=== PATIENT | male | born 1960 | race Caucasian/White ===

== ENCOUNTER 2019-02-16 18:11 | Inpatient (IN) | payer MEDICAID ==
[~2019-02-16] VITALS: Ht 170.2 cm; Wt 80.3 kg
--- NOTE | 2019-02-16 18:49 | NUR ---
PT PRESENTS TO ED WITH C/O TOE PAIN ON LEFT FOOT. PT STS HE BEGAN FEELING PAIN IN HIS FOOT/TOES X6 DAYS AGO. PER PT SON PT "TRIED TO CLEAN FOOT WITH SALINE WATER IN CASE HE HAD AN INFECTION. PT HAS HX OF DIABETES AND STS HE IS COMPLIANT WITH MEDICATION. PINKY TOE OF PT LEFT FOOT IS BLACK; ERYTHEMA AND SWELLING IS NOTED ON PT ENTIRE LEFT FOOT. PT STS HE HAS FEELING IN BIG TOE, SECOND TOE, AND THIRD TOE OF LEFT FOOT. PT DENIES PAIN PRIOR TO 6 DAYS AGO, FEVER, OR LEG PAIN. PT AAOX4, RESP E/U, NO ACUTE DISTRESS NOTED AT THIS TIME. SON AT BEDSIDE.
--- NOTE | 2019-02-16 19:08 | NUR ---
RECIEVED REPORT FROM RUFINO LITTLE, I WILL RESUME CARE OF THIS PATIENT
[2019-02-16 19:23] LABS: BASOPHIL % 0.7 % (0-2); RED CELL DISTRIBUTION WIDTH 13.9 % (11.5-14.5)
[2019-02-16 19:24] LABS: PLATELET COUNT 440 x10^3mcL (130-400)
--- NOTE | 2019-02-16 19:33 | NUR ---
MEDICATED PER MD ORDERS, SEE EMAR. FLUIDS INFUSING NO PROB. PT IN POSTION OF COMFORT, AOX4, NO SIGNS OF DISTRESS, RESP E/U. SISTER IS AT THE BEDSIDE. WILL CONT TO MONITOR.
[2019-02-16 19:36] LABS: CALCIUM 9.2 mg/dL (8.5-10.1); CARBON DIOXIDE 25.1 mmol/L (21-32); CHLORIDE SERUM 97 mmol/L (98-107); CREATININE SERUM 1.2 mg/dL (0.7-1.3); GFR1 > 60 mL/min; GLUCOSE SERUM 322 mg/dL (74-106); POTASSIUM SERUM 4.3 mmol/L (3.5-5.1); SODIUM SERUM 133 mmol/L (136-145)
[2019-02-16 19:48] LABS: ALKALINE PHOSPHATASE 211 U/L (46-116); ALT/SGPT 28 U/L (16-63); AST/SGOT 18 U/L (15-37)
[2019-02-16 19:49] LABS: ALBUMIN 2.8 g/dL (3.4-5.0); TOTAL PROTEIN, SERUM 8.7 g/dL (6.4-8.2)
--- NOTE | 2019-02-16 19:50 | NUR ---
COLLECTED WOUND CULTURE AND COMPLETED PICTURES OF WOUND.
[2019-02-16] MEDS ORDERED: METFORMIN HCL850 MG PO (22:30)
--- NOTE | 2019-02-16 22:30 | NUR ---
PT IN POSITION OF COMFORT LAYING IN BED WATCHING TV. PT IS AOOX4, NO SIGNS OF DISTRESS NOTED, RESP E/U. MED REC AND PERSONAL BELONGINGS LIST DONE.
--- NOTE | 2019-02-16 22:35 | NUR ---
GAVE REPORT TO TYE LITTLE WHO WILL RESUME FURTHER CARE OF THIS PATIENT.
[2019-02-16 23:09] VITALS: BP 123/72
--- NOTE | 2019-02-16 23:24 | NUR ---
RECEIVED PT FROM ER. PT ADMIT FOR CELLULITIS, DM FOOT ULCER. PT IS A/O X4, VERBAL RESPONSIVE, ABLE TO TELL WHAT HE NEEDS. LUNG SOUND CLEAR BIALTERAL, NO COUGH, NO SOB, PT DENY ANY CHEST PAIN OR DISCOMFORT, BOWEL SOUND PRESENT ALL 4 QUADRANTS, NO DISTENTION, NO TENDER. PEDAL PULSE PRESENT BOTH FEET, WEAKER AT LLE, LLE ERYTHEMA AND +1 EDEMA, LEFT FIFTH TOE IS BLACK DISCOLORATION. TIP OF RIGHT BIG TOE OPEN SCAB. IV AT LEFT AC, NO LEAKING, NO INFILTRATION. ALL ADLS ASSIST, ALL NEED MET, CALL LIGHT IN REACH, WILL CONTINUE TO MONITOR.
--- NOTE | 2019-02-16 23:29 | NUR ---
STARTED ON IVF NS AT 100CC/HR VIA PERIPHERAL LINE AT THE [facility] TOLERATING WELL. DENEIS ANY PAIN/DISCOMFORT AT THIS TIME. PLACED CALL LIGHT WITHIN REACH. INSTRUCTED TO CALL FOR ANY ASSISTANCE NEEDED AND VERBALIZED UNDERSTANDING.
[2019-02-16 23:45] LABS: CHOLESTEROL/HDL RATIO 7.2; MAGNESIUM 2.1 mg/dL (1.8-2.4); PHOSPHOROUS 3.5 mg/dL (2.5-4.9)
[2019-02-17 00:11] LABS: FREE T4 1.34 ng/dL (0.76-1.46); FREE THYROXINE INDEX 3.2 ug/dL (1.4-4.5); T4(THYROXINE) 8.4 ug/dL (4.7-13.3)
--- NOTE | 2019-02-17 06:18 | NUR ---
UNASYN 1.5GM IVPB GIVEN ORDERED, NO ADVERSE REACTION NOTED. URINE SPECIMEN COLLECTED FOR UA/UDS ORDERED AND SENT TO LAB. KEPT CLEAN AND DRY. ALL NEEDS ATTENDED.
[2019-02-17 06:22] LABS: BASOPHIL % 0.1 % (0-2); PLATELET COUNT 374 x10^3mcL (130-400); RED CELL DISTRIBUTION WIDTH 13.9 % (11.5-14.5)
[2019-02-17 06:37] VITALS: BP 123/76
[2019-02-17 06:38] LABS: CALCIUM 8.6 mg/dL (8.5-10.1); CARBON DIOXIDE 23.4 mmol/L (21-32); CHLORIDE SERUM 103 mmol/L (98-107); GFR1 > 60 mL/min; GLUCOSE SERUM 150 mg/dL (74-106); MAGNESIUM 1.9 mg/dL (1.8-2.4); PHOSPHOROUS 4.1 mg/dL (2.5-4.9); POTASSIUM SERUM 4.3 mmol/L (3.5-5.1); SODIUM SERUM 139 mmol/L (136-145)
--- NOTE | 2019-02-17 07:30 | NUR ---
OX4; NO SOB AT RA. DENIES PAIN AT THIS TIME THAT REQUIRE PAIN MED. LT FT 5TH TOE IS BLACK, MOIST, ERYTHEMATOUS ON THE SURROUNDING SKIN, AND EDEMATOUS. PULSES ARE MODERATE AND PALPABLE BIPEDAL. IVF NSS AT 100 ML/HR INFUSING; LAC SITE PATENT AND WITHOUT INFILTRATION. NPO PENDING DR. PERRY CONSULT. SAFETY PRECAUTION AND FALL PRECAUTION REINFORCED; WILL CONTINUE TO MONITOR STATUS.
[2019-02-17 07:57] LABS: T3 TOTAL 0.77 ng/mL
[2019-02-17 09:41] VITALS: BP 134/78
[2019-02-17 09:49] LABS: UA SPECIFIC GRAVITY 1.015 (1.005-1.035); microscopic required? YES; urine erythrocyte NEGATIVE (NEGATIVE)
[2019-02-17 10:02] LABS: AMPHETAMINE QUAL UR NONE DETECTED (See below)
--- NOTE | 2019-02-17 13:54 | NUR ---
PT SIGNED THE CONSENT FOR EXCISIONAL DEBRIDEMENT WITH I&D LT FT ORDERED BY DR. ALEJANDRE.
--- NOTE | 2019-02-17 15:00 | NUR ---
DR. ALEJANDRE AND HIS COMPUTER SCIENCE INSTRUCTOR IN THE ROOM PERFORMING THE PROCEDURE;
--- NOTE | 2019-02-17 15:40 | NUR ---
PT IS POST EXCISIONAL DEBRIDEMENT WITH I&D IN THE ROOM; PHOTO TAKEN POST DEBRIDEMENT; SPECIMEN SENT FOR LT FT DEEP WOUND CX ABSCESS ORDERED BY DR. ALEJANDRE; LT FT DSG CDI. PT C/O HUNGER SO WAS GIVEN SANDWICH AND MILK.
[2019-02-17 17:23] VITALS: BP 139/79
--- NOTE | 2019-02-17 18:36 | NUR ---
NO C/O OF PAIN THAT REQUIRE PAIN MEDS; LT FT DSG REMAIN CDI; NOT IN ANY DISTRESS.
--- NOTE | 2019-02-17 19:20 | NUR ---
REPORT RECIEVED FROM DAY SHIFT RN. PATIENT WAS SEEN AND IS RESTING COMFORTBALY IN BED. BREATHING EVEN ON ROOM AIR. NO SOB OR RESP DISTRESS NOTED. DENIES CHEST PAIN. MED SURG PATIENT. NO C/O OF PAIN. IV TO THE LAC INFUSING WELL. PATENT AND INTACT. NO REDNESS OR SWELLING NOTED. DRESSING NOTED TO THE LEFT FOOT S/P I+D. DRESSING CDI. COMFORT AND SAFETY MEASURES MAINTAINED. BED IS LOCKED AND IN THE LOWEST POSITION. SIDE RAILS UP X2. CALL LIGHT IS WITHIN REACH. PATIENT IS ABLE TO MAKE NEEDS KNOWN. WILL CONTINUE TO MONITOR.
--- NOTE | 2019-02-17 21:35 | NUR ---
BS 237. PATIENT IS SCHEDULED FOR METFORMIN (HOME MED). PER DR. GOODWIN, NO INSULIN WILL BE GIVEN AT THIS TIME. WILL RECHECK BS IN 2 HOURS TO ASSESS BS AFTER METFORMIN WAS ADMINISTERED.
--- NOTE | 2019-02-18 02:30 | NUR ---
PATIENT IS RESTING WITH EYES CLOSED AT THIS TIME. BREATHING EVEN ON ROOM AIR. IV INFUSING WELL. NO DISTRESS NOTED. CALL LIGHT IS WITHIN REACH. WILL CONTINUE TO MONITOR.
[2019-02-18 05:30] VITALS: BP 112/70
--- NOTE | 2019-02-18 06:23 | NUR ---
PATIENT SLEPT IN LONG INTERVAL THROUGHOUT THE NIGHT. BREATHING EVEN ON ROOM. NO DISTRESS NOTED. NO C/O PAIN THROUGHOUT THE NIGHT. EDUCATED PATIENT ON ALL MEDICATIONS. NO ACUTE/SIGNIFICANT CHANGES NOTED. DENIES CHEST PAIN. LEFT FOOT DRESSING INPLACE, CDI. IV TO LAC INFUSING WELL. PATENT AND INTACT. COMFORT AND SAFETY MEASURES MAINTAINED. BED IS LOCKED AND IN THE LOWEST POSITION. CALL LIGHT IS WITHIN REACH. ALL NEEDS AND CONCERNS ADDRESSED. WILL ENDORSE CARE TO DAY SHIFT RN.
[2019-02-18 06:26] LABS: CALCIUM 8.6 mg/dL (8.5-10.1); CARBON DIOXIDE 23.6 mmol/L (21-32); CHLORIDE SERUM 104 mmol/L (98-107); CREATININE SERUM 0.9 mg/dL (0.7-1.3); GFR1 > 60 mL/min; GLUCOSE SERUM 166 mg/dL (74-106); POTASSIUM SERUM 4.6 mmol/L (3.5-5.1); SODIUM SERUM 137 mmol/L (136-145)
[2019-02-18 06:32] LABS: BASOPHIL % 0.2 % (0-2); PLATELET COUNT 398 x10^3mcL (130-400); RED CELL DISTRIBUTION WIDTH 13.8 % (11.5-14.5)
--- NOTE | 2019-02-18 07:45 | NUR ---
PATIENT RESTING IN BED, NO ACUTE DISTRESS NOTED. NO SOB NOTED, PATIENT ON ROOM AIR. PAITENT DENIES PAIN. DRESSING NOTED TO LFOOT, CDI, NO DRAINAGE NOTED. PAITENT IS AMBULATORY. NS IV INFUSING TO LAC AT 100ML/HR, IV SITE CDI, NO REDNESS, SWELLING OR PAIN NOTED. CALL LIGHT WITHIN REACH, BED IN LOW POSITION. WILL CONTINUE TO MONITOR PATIENT.
[2019-02-18 09:52] VITALS: BP 118/72
--- NOTE | 2019-02-18 12:40 | NUR ---
DR ALEJANDRE, ADMINISTRATION PHYSICIAN AT BEDSIDE, PROVIDING PATIENT WITH A DRESSING CHANGE TO LEFT LOWER EXTREMITY.
--- NOTE | 2019-02-18 17:00 | NUR ---
PATIENT EATING AT THIS TIME, FAMILY AT BEDSIDE. PATIENT DENIES PAIN. NO ACUTE DISTRESS NOTED. CALL LIGHT WITHIN REACH, BED IN LOW POSITION. WILL CONTINUE TO MONITOR FOR CHANGES.
--- NOTE | 2019-02-18 17:50 | NUR ---
DR BASS AWARE PATIENT WOUND CULTURE IS E. COLI CARBAPENEM RESISTENT & MULTIDRUG RSISTANT. CHARGE NURSE MARIUM MADE AWARE. PATIENT PLACED ON CONTACT ISOLATION. WILL CONTINUE TO MONITOR.
[2019-02-18 17:58] VITALS: BP 126/69
--- NOTE | 2019-02-18 18:03 | NUR ---
DR ALEJANDRE, SENIOR MANAGER ASSET PROTECTION AT BEDSIDE, PROVIDING PATIENT WITH A DRESSING CHANGE TO LEFT LOWER EXTREMITY.
--- NOTE | 2019-02-18 18:18 | NUR ---
PATIENT RESTING IN BED, WATCHIN TV. PATIENT DENIES PAIN. NO ACUTE DISTRESS NOTED. NO SOB NOTED, PATIENT ON ROOM AIR. NO ACUTE CHANGES THROUGH OUT SHIFT, PATIENT IS STABLE. NS IV INFUSING TO LAC AT 100ML/HR, IV SITE CDI, NO REDNESS, SWELLING OR PAIN NOTED. CALL LIGHT WITHIN REACH, BED IN LOW POSITION FOR SAFETY PRECAUTION. WILL CONTINUE TO MONITOR AND ENDORSE REPORT TO NIGHT NURSE.
--- NOTE | 2019-02-18 19:30 | NUR ---
RECIEVED PATIENT AT START OF SHIFT A/O X4. ON CONTACT PRECAUTIONS FOR MDR ECOLI OF LEFT FOOT WOUND. DENIES PAIN. NO SOB ON RA. APPEARS COMFORTABLE. LEFT FOOT IS ELEVATED ON PILLOW, APPEARS SWOLLEN. MODERATE YELLOW EXUDATE NOTED ON WOUND DRESSING. CAP REFILL BRISK. IV INFUSING TO LAC WITHOUT ERYTHEMA OR INFILTRATION. BED LOCKED AND IN LOWEST POSITION. CALL LIGHT AND BEDSIDE TABLE WITHIN REACH. WILL CONTINUE TO MONITOR.
[2019-02-18 20:58] VITALS: BP 137/82
--- NOTE | 2019-02-19 00:30 | NUR ---
WOUND CULTURE SENSITIVITY REPORT SHOWED ORGANISMS RESISTANT TO UNASYN. DR. GOODWIN NOTIFIED. UNASYN D/C. AMIKACIN SCHEDULED FOR 010. WILL ADMINISTER PER EMAR.
[2019-02-19 05:32] VITALS: BP 139/80
--- NOTE | 2019-02-19 06:38 | NUR ---
NO FURTHER SIGNIFICANT EVENTS THIS SHIFT. SUPPLIES FOR WOUND DRESSING CHANGE LEFT AT BEDSIDE FOR REMOTE COMPUTER TERMINAL OPERATOR. WILL ENDORSE CARE TO MORNING NURSE.
--- NOTE | 2019-02-19 07:18 | NUR ---
REPORT TAKEN FROM AUTOMATIC ENGRAVER NURSE, PT AWAKE TALKING ON THE PHONE, IN NAD, DENIED PAIN AT THIS TIME, DRESSING CHANGE SUPPLIES AT THE BED SIDE. WILL CONTINUE TO MONITOR.
[2019-02-19 07:27] LABS: BASOPHIL % 0.4 % (0-2); PLATELET COUNT 393 x10^3mcL (130-400); RED CELL DISTRIBUTION WIDTH 13.8 % (11.5-14.5)
[2019-02-19 07:36] LABS: CALCIUM 8.6 mg/dL (8.5-10.1); CARBON DIOXIDE 22.8 mmol/L (21-32); CHLORIDE SERUM 104 mmol/L (98-107); CREATININE SERUM 0.8 mg/dL (0.7-1.3); GFR1 > 60 mL/min; GLUCOSE SERUM 139 mg/dL (74-106); POTASSIUM SERUM 4.5 mmol/L (3.5-5.1); SODIUM SERUM 137 mmol/L (136-145)
[2019-02-19 07:45] VITALS: BP 146/79
--- NOTE | 2019-02-19 15:12 | NUR ---
Discount pharmacy card and list to low cost medical clinics given to patient by Wes.
--- NOTE | 2019-02-19 15:34 | NUR ---
PT TOLERATED TREATMENT WELL TO THIS POINT, RESTING AT THIS TIME. DENIED PAIN IN LEFT FOOT. WILL CONTINUE TO MONITOR.
[2019-02-19 17:40] VITALS: BP 146/82
--- NOTE | 2019-02-19 18:49 | NUR ---
PT TOLERATED CARE WELL, NO NEW EVENTS DURING SHIFT, WILL ENDORSE CARE TO ANSWERER NURSE, ROUNDS COMPLETED
--- NOTE | 2019-02-19 19:10 | NUR ---
RECEIVED PT FROM DAY SHIFT RNCeline LADD. JORDANIAN SPEAKING. MEDSURG. DENIES CP. LUNG SOUNDS CTAB, NO SOB, BREATHING E/U ON RA. ABD SOFT/FLAT, BS ACTIVE X4 QUADS, DENIES N/V, DENIES ABD PAIN. DENIES PAIN. LLE WRAPPED IN GAUZE DRESSING, CDI, ELEVATED ON ONE PILLOW. ERYTHEMA AND SWELLING NOTED TO LLE. PT ABLE TO WIGGLE TOES. CAP REFILL <3. PULSES PALPABLE. IV SITE CDI, IVF INFUSING WELL. CALL LIGHT WITHIN REACH. REMINDED PT NOT TO BEAR WEIGHT ON LLE, PT VERBALIZED UNDERSTANDING. WILL CONTINUE TO MONITOR.
[2019-02-19 20:33] VITALS: BP 122/74
--- NOTE | 2019-02-20 00:20 | NUR ---
UPDATED DR. SELF ON PT CONDITION. LLE DRESSING REMOVED PER DR. SELF REQUEST TO ALLOW ASSESSMENT. GAUZE WITH BETADINE AND NEW DRESSING APPLIED, CDI. ORDERS RECEIVED, WILL INPUT AND CARRY OUT.
--- NOTE | 2019-02-20 01:24 | NUR ---
PT RESTING IN BED WITH EYES CLOSED. BREATHING E/U. EMPTIED 400CC OF CLEAR YELLOW URINE OUT OF URINAL. NO SIGNS OF PAIN NOTED. LLE DRESSING CDI. NO S/S ACUTE DISTRESS. CALL LIGHT WITHIN REACH. WILL CONTINUE TO MONITOR.
[2019-02-20 05:21] VITALS: BP 134/83
--- NOTE | 2019-02-20 05:59 | NUR ---
PT HAD RESTFUL NIGHT. DENIES PAIN. NO S/S ACUTE DISTRESS. BREATHING E/U. ALL NEEDS MET AND ATTENDED TO. NO SIGNIFICANT CHANGES. LLE DRESSING WITH SEROSANGUINEOUS DRAINAGE NOTED, REINFORCED NEEDED. REMINDED PT OF NON-WEIGHT BEARING ON LLE, PT VERBALIZED UNDERSTANDING. CALL LIGHT WITHIN REACH. IV SITE CDI, IVF INFUSING WELL. WILL ENDORSE CARE TO ONCOMING SHIFT.
[2019-02-20 07:45] LABS: CALCIUM 8.4 mg/dL (8.5-10.1); CARBON DIOXIDE 24.2 mmol/L (21-32); CHLORIDE SERUM 104 mmol/L (98-107); CREATININE SERUM 0.9 mg/dL (0.7-1.3); GFR1 > 60 mL/min; GLUCOSE SERUM 142 mg/dL (74-106); SODIUM SERUM 137 mmol/L (136-145)
--- NOTE | 2019-02-20 07:59 | NUR ---
RECEIVED PT SITTING UP IN BED. NO ACUTE DISTRESS. AAOX4. RESP EVEN AND UNLABORED ON RA. DRESSING TO LEFT FOOT C/D/I. L FOOT ELEVATED WITH PILLOW. PT ABLE TO WIGGLE TOES, DENIES NUMBNESS OR TINGLING. IVF INFUSING, NO REDNESS OR SWELLING. CONTACT ISOLATION. BED IN LOW POSITION, CALL LIGHT WITHIN REACH. WILL CONTINUE TO MONITOR.
[2019-02-20 08:02] LABS: BASOPHIL % 0.3 % (0-2)
[2019-02-20 08:07] VITALS: BP 133/80
[2019-02-20 08:14] LABS: PLATELET COUNT 402 x10^3mcL (130-400)
--- NOTE | 2019-02-20 08:43 | NUR ---
WOUND CARE CONSULT NOT DONE, PT. IS UNDER DR. ALEJANDRE'S CARE WHILE IN HOUSE AND WILL CONTINUE TO FOLLOW HIS ORDER. PENDING VASCULAR SURGEON CONSULT.
[2019-02-20 11:50] VITALS: BP 126/71
--- NOTE | 2019-02-20 12:34 | NUR ---
PT RESTING IN BED. NO ACUTE DISTRESS. NO C/O PAIN TO LLE. LLE ELEVATED WITH PILLOW. DRESSING C/D/I. IVF INFUSING, NO REDNESS OR SWELLING TO IV SITE. CALL LIGHT WITHIN REACH. WILL CONTINUE TO MONITOR.
--- NOTE | 2019-02-20 17:56 | NUR ---
DRESSING CHANGE DONE ON LEFT FOOT ORDERED. WOUND CLEANED WITH 10% BETADINE AND NORMAL SALINE, PACKED WITH BETADINE SOAKED GAUZE, COVERED WITH BETADINE SOAKED GAUZE, WRAPPED WITH KERLIX AND AR BANDAGE. PT TOLERATED WELL. L FOOT ELEVATED WITH PILLOW. WILL CONTINUE TO MONITOR.
[2019-02-20 18:04] VITALS: BP 135/78
--- NOTE | 2019-02-20 18:15 | NUR ---
PT SITTING UP IN BED EATING DINNER. NO ACUTE DISTRESS. AAOX4. NO C/O PAIN. DRESSING TO L FOOT C/D/I. ELEVATED WITH PILLOW. HOB ELEVATED. IVF INFUSING, NO REDNESS OR SWELLING. BED IN LOW POSITION, CALL LIGHT WITHIN REACH. WILL ENDORSE TO ONCOMING SHIFT.
--- NOTE | 2019-02-20 19:11 | NUR ---
RECEIVED PT FROM PREVIOUS SHIFT NURSE. AAO. IRAQI SPEAKING. DENIES PAIN. LLE WRAPPED IN GAUZE DRESSING, CDI, ELEVATED ON ONE PILLOW. SMALL AMOUNT OF SEROSANGUINEOUS DRAINAGE NOTED ON CHUCKS UNDERNEATH LLE. DENIES CP. RR EVEN AND UNLABORED, NO SOB. IV SITE CDI, IVF INFUSING WELL. CALL LIGHT WITHIN REACH. WILL CONTINUE TO MONITOR.
[2019-02-20 22:21] VITALS: BP 141/84
--- NOTE | 2019-02-20 22:44 | NUR ---
UPDATED DR. SELF ON PT CONDITION. NO NEW ORDERS.
--- NOTE | 2019-02-21 00:15 | NUR ---
PT RESTING IN BED. RR EVEN AND UNLABORED. NO S/S ACUTE DISTRESS. DENIES PAIN. WILL CONTINUE TO MONITOR.
[2019-02-21 06:12] VITALS: BP 139/76
--- NOTE | 2019-02-21 07:17 | NUR ---
BEDSIDE REPORT GIVEN TO SIDNEY HERNANDEZ. ALL QUESTIONS AND CONCERNS ADDRESSED.
--- NOTE | 2019-02-21 08:04 | NUR ---
AAO TIMES 4. MED SURG PATIENT. LUNGS CTA. NO SOB. O2 SAT ON RA 98%. BS'S ACTIVE TIMES 4. PERIPHERAL PULSES PALPABLE, LEFT FOOT DRESSING IN PLACE, THICKLY WRAPPED. NO EDEMA RIGHT FOOT, RIGHT FOOT PEDAL PULSES PALPABLE, WEAK TO MODERATE STRENGTH. IV SITE LAC PATENT, CDI.
[2019-02-21 08:08] LABS: BASOPHIL % 0.3 % (0-2); PLATELET COUNT 402 x10^3mcL (130-400); RED CELL DISTRIBUTION WIDTH 13.6 % (11.5-14.5)
[2019-02-21 09:14] LABS: CALCIUM 8.6 mg/dL (8.5-10.1); CARBON DIOXIDE 25.5 mmol/L (21-32); CHLORIDE SERUM 104 mmol/L (98-107); CREATININE SERUM 0.9 mg/dL (0.7-1.3); GFR1 > 60 mL/min; GLUCOSE SERUM 145 mg/dL (74-106); POTASSIUM SERUM 4.3 mmol/L (3.5-5.1); SODIUM SERUM 140 mmol/L (136-145)
[2019-02-21 09:42] VITALS: BP 122/71
--- NOTE | 2019-02-21 13:00 | NUR ---
DRESSING TO LEFT FOOT WAS REMOVED BY THE DR. Lolly IRRIGATED THE WOUND WITH SOLUTION OF 90% SALINE AND 10% BETADINE. BETADINE SOAKED KERLIX WAS INSERTED IN THE WOUND, DRY DRESSINGS WERE PLACED ON TOP, A KERLIX WRAP WAS WRAPPED AROUND FOOT THEN A LOOSE AR BANDAGE WAS WRAPPED AROUND THE FOOT.
[2019-02-21 17:51] VITALS: BP 131/80
--- NOTE | 2019-02-21 18:12 | NUR ---
AAO TIMES 4. MED SURG. CONTACT ISOLATION. DRESSING TO LEFT FOOT CDI. NO C/O PAIN. NO SOB. IV SITE PATENT, CDI LAC. COOPERATIVE. WATCHING TV.
--- NOTE | 2019-02-21 19:30 | NUR ---
REC'D PT FROM DAY NURSE. PT RESTING IN BED. AAOX4, SPEECH CLEAR, FOLLOWS COMMANDS. MED SURG, NO TELE. DENIES CP, DIZZINESS, OR PALPITATIONS. DENIES RESP DISTRESS OR SOB. BREATHING EVEN/UNLABORED ON RA. ABD SOFT/FLAT. DENIES ABD PAIN, TENDERNESS, OR N/V. VOIDING FREELY. AMBULATORY- NWB TO LLE. DRESSING TO L FOOT IN PLACE, CDI WITH SPOTS OF BETADINE. BLE ELEVATED WITH PILLOWS. PT DENIES ANY PAIN, NUMBING, OR TINGLING. FULL ROM. IV TO LAC PATENT AND INFUSING, SITE WNL. PT IS NPO AFTER MN D/T SX IN AM. PT VERBALIZED UNDERSTANDING. CALL LIGHT WITHIN REACH, BED AT LOWEST POSITION. WILL CONTINUE TO MONITOR.
[2019-02-21 20:49] VITALS: BP 135/78
--- NOTE | 2019-02-22 01:04 | NUR ---
PT RESTING IN BED WITH EYES CLOSED. APPEARS TO BE SLEEPING. NO SIGNS OF DISTRESS NOTED. BREATHING EVEN/UNLABORED ON RA. LLE ELEVATED ON PILLOW. CALL LIGHT WITHIN REACH, BED AT LOWEST POSITION. WILL CONTINUE TO MONITOR.
[2019-02-22 05:31] VITALS: BP 143/81
[2019-02-22 06:15] LABS: BASOPHIL % 0.3 % (0-2); RED CELL DISTRIBUTION WIDTH 13.5 % (11.5-14.5)
--- NOTE | 2019-02-22 06:15 | NUR ---
PT AWAKE AND RESTING IN BED. REPORTS SLEEPING WELL. DENIES ANY PAIN. LLE ELEVATED, DRESSING CDI. CHG WIPES DONE. CHECKLIST COMPLETED. NPO SINCE MN. PARTIAL AMPUTATION OF 5TH L TOE TODAY. PT DENIES ANY ANXIETY. METFORMIN HELD D/T NPO STATUS. BS 147. CALL LIGHT WITHIN REACH, BED AT LOWEST POSITION. WILL ENDORSE TO DAY NURSE.
[2019-02-22 06:30] LABS: CALCIUM 8.9 mg/dL (8.5-10.1); CHLORIDE SERUM 104 mmol/L (98-107); CREATININE SERUM 0.9 mg/dL (0.7-1.3); GFR1 > 60 mL/min; GLUCOSE SERUM 168 mg/dL (74-106); MAGNESIUM 1.7 mg/dL (1.8-2.4); PHOSPHOROUS 3.8 mg/dL (2.5-4.9); PLATELET COUNT 425 x10^3mcL (130-400); SODIUM SERUM 138 mmol/L (136-145)
--- NOTE | 2019-02-22 06:34 | NUR ---
REPORT GIVEN TO MANJINDER LITTLE FROM OR
--- NOTE | 2019-02-22 07:29 | NUR ---
AAO TIMES 4. MED SURG. ISOLATION, CONTACT PRECAUTIONS. LUNGS CTA. NO SOB. O2 SAT ON RA 97%. BS'S ACTIVE TIMES 4. GIMENEZ STRONG, EXCEPT LLE IS NWB STATUS. NPO FOR SURGERY. IV SITE LFA PATENT, CDI. COOPERATIVE AND PLEASANT. DRESSING TO LLE CDI.
[2019-02-22 11:40] VITALS: BP 123/80
--- NOTE | 2019-02-22 11:51 | NUR ---
ARRIVED BACK FROM OR AAO TIMES 4. DRESSING TO LEFT FOOT CDI. NO C/O PAIN. VS'S STABLE. NO SOB. IV SITE CDI. COOPERATIVE.
--- NOTE | 2019-02-22 14:40 | NUR ---
Initial Nutrition Assessment- 239/B KELECHI SPEAR MR Dx: cellulitis, diabetic foot ulcer PMHx: uncontrolled DM PSHx: none Labs: (02/22) BG 168H (02/16) A1C 10.8H Meds: Colace, D50, flagyl, Glucophage, humulin, NS, Zofran Diet: (02/22) NPO (for amputation w/podiatry), (02/17-) CCHO PO Intake: 95% average intake while on CCHO diet Ht: 170.18 cm (67") Wt: 80.2 kg (176#) BMI: 27.7 kg/m2 IBW: 148# (67 kg) %IBW: 118 UBW: ask pt. Age: 58/M Food Allergies: NKFA Skin: Dressing to LLE Delmar: 20 Edema: none GI: last BM: 02/21 Per H&P, pt is a 58yoM with PMH uncontrolled DM who presented to the ED c/o worsening L 5th toe pain with associated erythema and discoloration x1 week. Pt denied any memory of trauma to the foot, any fevers/chills, nausea/vomiting, numbness/tingling, LOC/seizure activity, leg pain or weakness, chest pain, SOB/cough. RDN visit (02/22): pt's diet order was changed to CCHO and was eating lunch at the time of visit. Pt said that his appetite is good. Diet education on Diabetic diet was provided along with handouts. Pt was receptive and verbalized understanding. Problem with: N: no V: no D: no C: no Problems with: Chewing: no Swallowing: no Current appetite: good Recent wt change: unknown Vitamin/Supplement use: none Special diet at home: regular Physical activity: unknown Education: Diabetic diet education provided along with handouts on label reading, CHO counting and a sample meal plan. Estimated Nutritional Needs Based on ideal body weight 67 kg Energy: 1675- 2000 kcal/d (25-30 kcal/kg-maintenance) Protein: 67-80 g/d (1.0-1.2g/kg)-maintenance and preservation of lean body mass Fluid: 3753-3708 ml/d (1 ml/kcal-fluid balance) or per doctor Nutrition Diagnosis 1. Impaired nutrient utilization related to uncontrolled DM as evidenced by hyperglycemia. 2. Excessive carbohydrate intake related to food and nutrition related knowledge deficit as evidenced by A1C 10.8 Intervention 1. [facility] with [facility] diet. 2. Diabetic diet education provided along with handouts. Monitor/Evaluate Goal: PO intake at least 75% of estimated needs Monitor: PO intake, Labs, GI function F/U in 3-5 days as moderate risk
--- NOTE | 2019-02-22 14:41 | NUR ---
1. Continue with [facility] diet. 2. Diabetic diet education provided along with handouts.
[2019-02-22 18:01] VITALS: BP 136/78
--- NOTE | 2019-02-22 18:10 | NUR ---
AAO TIMES 4. MED SURG. DRESSING TO LEFT FOOT CDI. COOPERATIVE. C/O LEFT FOOT PAIN INTERMITTANT 03/16, GAVE NORCO PO AT 1804. FAMILY PRESENT, SUPPORTIVE. IV SITE CDI TO LFA. NO SOB.
--- NOTE | 2019-02-22 19:30 | NUR ---
RECIEVED PATIENT AT START OF SHIFT A/O X4, MED-SURG, NO SOB ON RA, COMPLAINING OF 7/10 PAIN TO HIS LEFT FOOT. LEFT FOOT WOUND DRESSING IS CDI, NON-PITTING EDEMA PRESENT, CAP REFILL BRISK. NO OTHER EDEMA NOTED. LEFT FOOT ELEVATED ON PILLOW. PATIENT STATED HE HAS HAD A BM AFTER HIS SURGERY THIS MORNING AND HAS BEEN TOLERATING DIABETIC DIET WELL. NO DIFFICULTY URINATING. IV INFUSING TO LFA, NO EDEMA OR INFILTRATION NOTED. CONTACT PRECAUTIONS IN PLACE FOR MDRO ECOLI OF HIS WOUND. BED LOCKED AND IN LOWEST POSITION. CALL LIGHT AND BEDSIDE TABLE WITHIN REACH. WILL CONTINUE TO MONITOR.
--- NOTE | 2019-02-22 20:54 | NUR ---
PATIENT MEDICATED WITH MORPHINE PER EMAR FOR 7/10 PAIN TO LLE.
[2019-02-22 21:21] VITALS: BP 123/74
--- NOTE | 2019-02-23 01:00 | NUR ---
PATIENT'S EYES ARE CLOSED, BREATHS EVEN. NO ACUTE CHANGES THUS FAR.
[2019-02-23 06:13] VITALS: BP 129/78
[2019-02-23 06:47] LABS: CALCIUM 8.5 mg/dL (8.5-10.1); CARBON DIOXIDE 25.3 mmol/L (21-32); CHLORIDE SERUM 102 mmol/L (98-107); CREATININE SERUM 0.9 mg/dL (0.7-1.3); GFR1 > 60 mL/min; GLUCOSE SERUM 181 mg/dL (74-106); MAGNESIUM 1.7 mg/dL (1.8-2.4); PHOSPHOROUS 3.4 mg/dL (2.5-4.9); SODIUM SERUM 134 mmol/L (136-145)
--- NOTE | 2019-02-23 06:53 | NUR ---
NO FURTHER SIGNIFICNAT EVENTS THIS SHIFT. WILL ENDORSE CARE TO MORNING NURSE.
[2019-02-23 06:57] LABS: BASOPHIL % 0.3 % (0-2); PLATELET COUNT 394 x10^3mcL (130-400); RED CELL DISTRIBUTION WIDTH 13.8 % (11.5-14.5)
--- NOTE | 2019-02-23 08:05 | NUR ---
AWAKE,ALERT AND ORIENTED. DENEIS ANY PAIN AT THIS TIME. CALL LIGHT W/ IN REACH CONT. IV FLUIDS AND IV ANTIBIOTIC ORDERED.NO ACUTE RESP. DISTRESS NOTED.CONTACT ISOLATION MDRO E COLI WOUND.VOIIDNG WELL IN URINAL.WILL CONT. PLAN OF CARE.
[2019-02-23 09:44] VITALS: BP 126/75
--- NOTE | 2019-02-23 14:49 | NUR ---
SLEEP MOST OF THE TIME DENEIS ANY PAIN.-PT. STATED HE DID NOT SLEEP WELL LAST NIGHT,NO ACUTE DISTRESS NOTED. CALL LIGHT W/ N REACH.
[2019-02-23 16:30] VITALS: BP 137/80
--- NOTE | 2019-02-23 18:02 | NUR ---
DR. KRUEGER HERE AND SEEN THE PT. AND CHANGED DRESSING S/P LEFT FOOT 5TH TOE AMPUTEE 02/22/19.
--- NOTE | 2019-02-23 20:09 | NUR ---
PT CURRENTLY RESTING IN BED, NO ACUTE DISTRESS. A/O X4. NO TELE, MED/SURG. DENIES CHEST PAIN. PULSES PALPABLE IN ALL EXTREMITIES, LLE TRACE EDEMA NOTED. LUNG SOUNDS CTA BILATERALLY, DENIES SOB. BOWEL SOUNDS ACTIVE, LAST BM 02/23/19. VOIDING WELL. LLE WEAKNESS, NONWEIGHT BEARING TO LEFT FOOT WITH HEEL. LEFT FOOT DRESSING CDI. IV PATENT AND INTACT. BED IN LOWEST POSITION, SIDE RAILS UP X2, CALL LIGHT WITHIN REACH. WILL CONTINUE TO MONITOR.
[2019-02-23 22:00] VITALS: BP 137/78
--- NOTE | 2019-02-24 02:59 | NUR ---
PT CURRENTLY RESTING IN BED, NO ACUTE DISTRESS. WILL CONTINUE TO MONITOR.
[2019-02-24 06:18] LABS: BASOPHIL % 0.3 % (0-2); RED CELL DISTRIBUTION WIDTH 13.8 % (11.5-14.5)
--- NOTE | 2019-02-24 06:25 | NUR ---
PT SLEPT PERIODICALLY THROUGHOUT NIGHT, NO ACUTE DISTRESS. ALL NEEDS MET AND ATTENDED TO. NO SIGNIFICANT CHANGES. IV PATENT AND INTACT. BED IN LOWEST POSITION, SIDE RAILS UP X2, CALL LIGHT WITHIN REACH. WILL ENDORSE CARE TO ONCOMING NURSE.
[2019-02-24 06:53] VITALS: BP 139/85
[2019-02-24 07:20] LABS: PLATELET COUNT 403 x10^3mcL (130-400)
[2019-02-24 07:38] LABS: CALCIUM 8.9 mg/dL (8.5-10.1); CARBON DIOXIDE 26.8 mmol/L (21-32); CHLORIDE SERUM 106 mmol/L (98-107); CREATININE SERUM 0.9 mg/dL (0.7-1.3); GFR1 > 60 mL/min; GLUCOSE SERUM 149 mg/dL (74-106); POTASSIUM SERUM 4.4 mmol/L (3.5-5.1); SODIUM SERUM 141 mmol/L (136-145)
--- NOTE | 2019-02-24 07:55 | NUR ---
AWAKE,ALERT AND ORIENTED,DENIES ANY PAIN AT THIS TIME. S/P PARTIAL LEFT 5TH TOE AMPUTATION 02/22.W/ DRESSING CDI,CONT. INSTRUCTED TO TO ELEVATE HIS LEFT FOOT AT ALL TIME.CONT. IV FLUIDS AND IV ANTIBIOTIC ORDERED.CALL LIGHT W/ IN REACH. NO ACUTE DISTRESS NOTED. WILL CONT. PLAN OF CARE.
[2019-02-24 08:58] VITALS: BP 134/85
--- NOTE | 2019-02-24 10:00 | NUR ---
DR. KRUEGER PODIATRY CAME IN SEEN THE PT. AND DRESSING CHANGED IN LEFT FOOT AND APPLIED WOUND VAC .CONT. ORDERED.
[2019-02-24 17:10] VITALS: BP 125/77
--- NOTE | 2019-02-24 18:24 | NUR ---
PT. DENIES PAIN THE WHOLE DAY. WOUND VAC CONT. NO DRAINAGE OUT PUT. NOTED.LEFT FOOT DRESSING CDI.CALL LIGHT W/ IN REACH.
[2019-02-24 21:43] VITALS: BP 146/84
--- NOTE | 2019-02-24 21:49 | NUR ---
LATE ENTRY: 1915H - AWAKE AND ALERT, ORIENTED TO NAME, PLACE, TIME AND SITUATION. SPEECH CLEAR AND APPROPRIATE. BREATHING EVEN AND UNLABORED ON ROOM AIR. LEFT LEG ELEVATED ON PILLOWS. DRESSING INTACT. WOUND VAC READS LEAK. PER PT HAS BEEN ONGOING. NO DRAINAGE NOTED TO DRAINAGE CHAMBER.
--- NOTE | 2019-02-24 21:55 | NUR ---
RASHAUN SMART REINFORCED WOUND VAC DRESSING. WOUND VAC MACHINE NO LONGER READS HAVING LEAK. KEPT LEFT LEG ELEVATED ON PILLOW.
--- NOTE | 2019-02-25 00:20 | NUR ---
EYES CLOSED, BREATHING EVEN AND UNLABORED ON ROOM AIR. CALL LIGHT WITHIN EASY REACH. WOUND VAC TO LEFT FOOT.
--- NOTE | 2019-02-25 01:09 | NUR ---
AWAKE AND ALERT, BREATHING UNLABORED. LEFT FOOT KEPT ELEVATED ON PILLOWS. WOUND VAC TO LEFT FOOT. CALL LIGHT WITHIN EASY REACH.
--- NOTE | 2019-02-25 02:57 | NUR ---
eyes closed, breathing unlabored. wound vac running well. call light within easy reach.
[2019-02-25 05:59] VITALS: BP 134/79
--- NOTE | 2019-02-25 06:06 | NUR ---
SEROUS FLUID NOTED TO DRAINAGE CHAMBER OF WOUND VAC. NOTED LESS THAN 25ML IN VOLUME. LEFT FOOT KEPT ELEVATED ON PILLOW. DRESSING DRY AND INTACT. DENIES HAVING PAIN AT THIS TIME. AWAKE AND ALERT. BREATHING UNLABORED. IV SITE FREE FROM ERYTHEMA OR SWELLING.
[2019-02-25 06:19] LABS: BASOPHIL % 0.3 % (0-2); RED CELL DISTRIBUTION WIDTH 13.8 % (11.5-14.5)
[2019-02-25 06:54] LABS: CALCIUM 8.4 mg/dL (8.5-10.1); CARBON DIOXIDE 24.6 mmol/L (21-32); CHLORIDE SERUM 106 mmol/L (98-107); CREATININE SERUM 0.9 mg/dL (0.7-1.3); GFR1 > 60 mL/min; GLUCOSE SERUM 115 mg/dL (74-106); MAGNESIUM 1.8 mg/dL (1.8-2.4); PHOSPHOROUS 3.5 mg/dL (2.5-4.9); POTASSIUM SERUM 4.3 mmol/L (3.5-5.1); SODIUM SERUM 139 mmol/L (136-145)
[2019-02-25 07:02] LABS: PLATELET COUNT 413 x10^3mcL (130-400)
--- NOTE | 2019-02-25 07:12 | NUR ---
EYES CLOSED, BREATHING UNLABORED. WOUND VAC RUNNING WELL. ENDORSED TO NURSE MIRANDA
[2019-02-25 08:01] VITALS: BP 134/80
--- NOTE | 2019-02-25 10:45 | NUR ---
DR. KRUEGER WAS HERE AND SEEN THE PT.AND CHANGED DRESSING IN LEFT FOOT AND WOUND VAC.WITH ORDERS RECIEVED TO DO SURGERY TOMORROW AT 0730 AM.PROCEDURE DELAYED PRIMARY CLOSURE W/ POSSIBLE GRAFT LEFT FOOT .DR. KRUEGER EXPLAINED THE PROCEDURE TO PT, AND PT. VERBALIZED UNDERSTANDING OF THE PROCEDURE AND SIGNED THE CONSENT.NPO AFTER MN .
[2019-02-25 17:00] VITALS: BP 142/86
--- NOTE | 2019-02-25 18:22 | NUR ---
PT. DENIES PAIN THE WHOLE DAY,NO ACUTE DISTRESS NOTED. NPO AFTER MN FOR SURGERY TOMORROW @ 7;30 AM
--- NOTE | 2019-02-25 19:32 | NUR ---
AAO X 4. BREATHING EVEN AND UNLABORED ON ROOM AIR. IVF INFUSING WELL. LEFT LEG ON PILLOWS. WOUND VAC RUNNING WELL, WITH SEROUS FLUID NOTED TO DRAINAGE CHAMBER. DRESSING TO LEFT FOOT CDI. FOR SURGERY IN AM, PT AWARE TO BE NPO AFTER MIDNIGHT.
[2019-02-25 20:23] VITALS: BP 144/86
--- NOTE | 2019-02-25 22:51 | NUR ---
EYES CLOSED, BREATHING UNLABORED. WOUND VAC RUNNING WELL. IVF INFUSING WELL. CALL LIGHT WITHIN EASY REACH. TO BE NPO AFTER MIDNIGHT.
--- NOTE | 2019-02-26 01:59 | NUR ---
EYES CLOSED, BREATHING UNLABORED. KEPT NPO. CALL LIGHT WITHIN EASY REACH.
[2019-02-26 06:00] VITALS: BP 130/76
--- NOTE | 2019-02-26 06:02 | NUR ---
EYES CLOSED, EASILY AWAKENED. STATED SLEPT WELL. DENIES HAVING PAIN. WOUND VAC TO LEFT FOOT. LEFT FOOT KEPT ELEVATED ON PILLOWS. DENIES HAVING PAIN. IV SITE TO RIGHT AC FREE FROM ERYTHEMA OR SWELLING. IVF INFUSING WELL. HIBICLENS BATH ADMINISTERED. KEPT NPO EXCEPT MEDICATION.
[2019-02-26 06:21] LABS: BASOPHIL % 0.6 % (0-2); RED CELL DISTRIBUTION WIDTH 13.7 % (11.5-14.5)
[2019-02-26 06:39] LABS: CALCIUM 8.5 mg/dL (8.5-10.1); CARBON DIOXIDE 23.8 mmol/L (21-32); CHLORIDE SERUM 104 mmol/L (98-107); CREATININE SERUM 0.8 mg/dL (0.7-1.3); GFR1 > 60 mL/min; GLUCOSE SERUM 127 mg/dL (74-106); PHOSPHOROUS 3.3 mg/dL (2.5-4.9); SODIUM SERUM 139 mmol/L (136-145)
--- NOTE | 2019-02-26 06:42 | NUR ---
REPORT GIVEN TO OR NURSE
[2019-02-26 06:46] LABS: PLATELET COUNT 448 x10^3mcL (130-400)
--- NOTE | 2019-02-26 06:48 | NUR ---
OR TECH BROUGHT PT DOWN VIA BED.
--- NOTE | 2019-02-26 07:05 | NUR ---
PT IN OR. ENDORSED TO NURSE MCKEON
--- NOTE | 2019-02-26 07:17 | NUR ---
ASSUMED CARE OF PATIENT. AWAITING RETURN FROM OR.
--- NOTE | 2019-02-26 09:44 | NUR ---
RECIEVED REPORT FROM OR. PATIENT S/P PARTIAL CLOSURE OF RIGHT FOOT. WOUND VAC IN PLACE WITH SUTURES. ZEROFOAM 4X4 WITH AR WRAPPING IN PLACE. EBL OF 10 ML. 600 NS PROVIDED. VSS (135/88, RR 16, 94% RA, HR 69, TEMP 97.5). REPORTS PATIENT IS AWAKE AND ALERT WITH NO COMPLAINTS OF PAIN. AWAITING RETURN TO UNIT.
[2019-02-26 10:06] VITALS: Ht 170.2 cm; Wt 80.3 kg
--- NOTE | 2019-02-26 10:34 | NUR ---
PATIENT RETURNED TO UNIT APPROXIMATELY 1010. ALERT AND ORIENTED X4. PULSES PALPABLE. NO EDEMA NOTED. SCD PLACED ON RIGHT LEG. LEFT LEG HAS WOUND VAC. LUNG SOUNDS CLEAR TO ROOM AIR. RESPIRATIONS UNLABORED, RR 16. BOWEL SOUNDS PRESENT IN ALL 4 QUADRANTS. ENDORSING LAST BM 02/25/19. VOIDING WITH NO ISSUE, UTILIZING URINAL. COMPLIANT WITH NONWEIGHTBEARING TO LEFT FOOT. WOUND VAC TO LEFT FOOT DRESSING CLEAN, DRY, INTACT. NO COMPLAINTS OF PAIN. IV TO RIGHT FOREARM PATENT AND INFUSING 100 ML/HR NS. BED LOCKED AND IN LOWEST POSITION. CALL LIGHT WITHIN REACH. WILL CONTINUE TO MONITOR.
--- NOTE | 2019-02-26 10:51 | NUR ---
COMPLIANT WITH INCENTIVE SPIROMETER
--- NOTE | 2019-02-26 11:12 | NUR ---
Follow-up Nutrition Assessment- 239/B KELECHI SPEAR MR Dx: cellulitis, diabetic foot ulcer Labs: (02/26) BG 127H Meds: Colace, D50, Glucophage, humulin 3ml, zofran Diet: NPO (surgery tomorrow), (02/22-) CCHO PO intake: (02/25) CCHO - 100% Weights: wt log not documented Skin: S/P LT 5th toe amputation, wound vac to LT foot, noted serous fluid in drainage chamber. Dressing intact and dry [place]: 20 Edema: non-pitting edema to LT foot Last BM: 02/23/19 Per H&P, pt is a 58yoM with PMH uncontrolled DM who presented to the ED c/o worsening L 5th toe pain with associated erythema and discoloration x1 week. Pt denied any memory of trauma to the foot, any fevers/chills, nausea/vomiting, numbness/tingling, LOC/seizure activity, leg pain or weakness, chest pain, SOB/cough. 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 Per podiatry, patient will undergo surgery today for delayed primary closure of the left foot. RDN Visit (02/26): pt was undergoing surgery for delayed primary closure of LT foot and was therefore not in the room. Information was obtained from RN Anne. She said that pt had good appetite yesterday before he was NPO. Pt does not have any N/V/D/C at this time. RDN visit (02/22): pt's diet order was changed to [facility] and was eating lunch at the time of visit. Pt said that his appetite is good. Diet education on Diabetic diet was provided along with handouts. Pt was receptive and verbalized understanding. Estimated Nutritional Needs Based on ideal body weight 67 kg Energy: 1675- 2000 kcal/d (25-30 kcal/kg-maintenance) Protein: 67-80 g/d (1.0-1.2g/kg)-maintenance and preservation of lean body mass Fluid: 2178-7666 ml/d (1 ml/kcal-fluid balance) or per doctor Nutrition Diagnosis 1. Increased nutrient needs related to surgery as evidenced by recent amputation. 2. Impaired nutrient utilization related to uncontrolled DM as evidenced by hyperglycemia. (ongoing) 3. Excessive carbohydrate intake related to food and nutrition related knowledge deficit as evidenced by A1C 10.8. (ongoing) Intervention 1. Continue with [facility] diet. 2. Diabetic diet education provided along with handouts during pervious visit (02/22). Monitor/Evaluate Previous goal: Goal: PO intake at least 75% of estimated needs Monitor: PO intake, Labs, GI function F/U in 3-5 days as moderate risk
--- NOTE | 2019-02-26 11:12 | NUR ---
1. Continue with [facility] diet. 2. Diabetic diet education provided along with handouts during pervious visit (02/22).
[2019-02-26 11:40] VITALS: BP 129/67
--- NOTE | 2019-02-26 11:52 | NUR ---
PATIENT SEEN RESTING IN BED WITH UNLABORED RESPIRATIONS. NO NEW ISSUES.
--- NOTE | 2019-02-26 13:46 | NUR ---
PATIENT SEEN USING INCENTIVE SPIROMETER IN ROOM. NO COMPLAINTS OF PAIN OR DISCOMFORT. PATIENT IS PLEASANT TO INTERACT WITH WITH NO APPARENT SIGNS/SX OF DISTRESS OR DISCOMFORT. NO NEW ISSUES.
--- NOTE | 2019-02-26 18:09 | NUR ---
PATIENT SEEN RESTING IN BED. NO COMPLAINTS OF PAIN OR DISCOMFORT. RESPIRATIONS UNLABORED. CONTINUES TO UTILIZE INCENTIVE SPIROMETER. WOUNDVAC DRAINING SANGUINOUS FLUID. AR WRAPPING ON LEFT FOOT CLEAN DRY AND INTACT. SENSATIONS PROXIMAL TO DRESSING INTACT. NO NEW ISSUES.
[2019-02-26 18:30] VITALS: BP 153/83
--- NOTE | 2019-02-26 18:37 | NUR ---
FOAM RUBBER MOLDER REPORTING HIGH BP (150-160). PATIENT HAS NO COMPLAINTS OF PAIN. PRN NORCO PROVIDED TO HELP LOWER BP WELL TREAT POSSIBLE PAIN THAT PATIENT IS UNABLE TO SENSE. WILL MONITOR.
--- NOTE | 2019-02-26 18:43 | NUR ---
PATIENT SEEN RESTING COMFORTABLY IN BED. NO COMPLAINTS OF PAIN OR DISCOMFORT. NO SOB OR RESPIRATORY DISTRESS NOTED. WILL ENDORSE CARE TO ONCOMING RN.
--- NOTE | 2019-02-26 19:25 | NUR ---
RECIEVED PATIENT AT START OF SHIFT AWAKE AND ORIENTED X4, NO COMPLAINT OF PAIN, AND NO SOB ON RA. WOUND VAC ATTACHED TO LEFT FOOT DRAINING SANGUINOUS FLUID, 50 MLS TOTAL IN THE CONTAINER. AR BANDAGE WRAP AROUND LEFT FOOT, CDI, ELEVATED ON A PILLOW. IV INFUSING TO RFA, NO ERYTHEMA OR INFILTRATION NOTED. BED LOCKED AND IN LOWEST POSITION. CALL LIGHT AND BEDSIDE TABLE WITHIN REACH. WILL CONTINUE TO MONITOR.
[2019-02-26 21:03] VITALS: BP 143/77
--- NOTE | 2019-02-27 01:13 | NUR ---
PATIENT REPORTED 6/10 PAIN TO LEFT FOOT. MEDICATED WITH NORCO PER EMAR.
[2019-02-27 05:20] VITALS: BP 102/67
--- NOTE | 2019-02-27 06:45 | NUR ---
NO WOUND VAC OUTPUT OVERNIGHT. CONTAINER REMIANS AT 50 MLS TOTAL. PATIENT DENIES PAIN. NO ACUTE CHANGES OVERNIGHT. WILL ENDORSE CARE TO MORNING NURSE.
[2019-02-27 07:24] LABS: BASOPHIL % 0.3 % (0-2); RED CELL DISTRIBUTION WIDTH 13.5 % (11.5-14.5)
--- NOTE | 2019-02-27 07:30 | NUR ---
AAO X4.DENIES ANY PAIN/DISCOMFORT.LUNGS CLEAR.PT NONE-TELE.IVF NS GOING AT 100 ML/HR INFUSING WELL.L LEG COVERED AR BANDAGE WITH WOUND VAC IN PLACE DRAINING SEROUS FLUID.S/P DELAYED PRIMARY CLOSURE OF L FOOT.CALL LIGHT WITHIN REACH.INSTRUCTED TO CALL FOR ANY PAIN/DISCOMFORT.WILL CONTINUE TO MONITOR PT.
[2019-02-27 07:36] LABS: PLATELET COUNT 414 x10^3mcL (130-400)
[2019-02-27 07:44] LABS: CALCIUM 8.4 mg/dL (8.5-10.1); CARBON DIOXIDE 25.8 mmol/L (21-32); CHLORIDE SERUM 105 mmol/L (98-107); CREATININE SERUM 0.8 mg/dL (0.7-1.3); GFR1 > 60 mL/min; GLUCOSE SERUM 129 mg/dL (74-106); POTASSIUM SERUM 4.1 mmol/L (3.5-5.1); SODIUM SERUM 138 mmol/L (136-145)
[2019-02-27 10:00] VITALS: BP 115/72
--- NOTE | 2019-02-27 13:00 | NUR ---
PT ATE 100 % OF LUNCH.
--- NOTE | 2019-02-27 13:29 | NUR ---
PT COMFORTABLE NO COMPLAINTS.
--- NOTE | 2019-02-27 14:30 | NUR ---
FOUND PT IN THE BATHROOM TRYING TO HAVE A BM.INFORMED PT NOT SUPPOSED TO BE BEARING WT ON THE L FOOT.ALSO CLAIMS TO HAVE DISCONNECTED THE WOUND VAC.CLAIMS SOMEBODY CAME AND DISCONNECTED IT.INFORMED PT TO CALL RN.PT VERBALIZES UNDERSTANDING.
--- NOTE | 2019-02-27 14:50 | NUR ---
FOLLOWED UP ON NADIA BOYD ABOUT THE WOUND VAC. PER OLIVER WILL CALL [employer] AND FOLLOW-UP WHEN IS THE DELIVERY OF THE WOUND VAC.
--- NOTE | 2019-02-27 16:34 | NUR ---
INFORMED THAT WOUND VAC WAS DELIVERED.PT WILL BE DISCHARGE TOMORROW.INFORMED MARIUM.
[2019-02-27 16:50] VITALS: BP 123/68
--- NOTE | 2019-02-27 18:12 | NUR ---
NO SIGNIFICANT CHANGE NOTED.WILL ENDORSE TO NEXT SHIFT.
--- NOTE | 2019-02-27 20:00 | NUR ---
PT A/A/O X4. DENIES DIZZINESS AND HEADACHE. BREATH SOUNDS CLEAR. BREATHING EVEN AND UNLABORED ON ROOM AIR. DENIES CHEST PAIN AND PRESSURE. BOWEL SOUNDS ACTIVE. NO C/O N/V AND ABD PAIN. DRESSING C/D/I WITH WOUND VAC NOTED ON THE LEFT LOWER EXTREMITY WITH DARK RED DRAINAGE NOTED ON THE WOUND VAC. IV INTACT ON THE RIGHT FOREARM INFUSING WITH NS AT 100 ML/HR. MADE PT COMFORTABLE. PLACED CALL LIGHT WITH IN REACH. WILL CONTINUE TO MONITOR.
[2019-02-27 20:57] VITALS: BP 151/73
--- NOTE | 2019-02-28 00:18 | NUR ---
PT RESTING WITH EYES CLOSED. NO DISTRESS AND DISCOMFORT NOTED. WILL CONTINUE TO MONITOR.
[2019-02-28 06:02] LABS: BASOPHIL % 0.7 % (0-2); RED CELL DISTRIBUTION WIDTH 13.8 % (11.5-14.5)
[2019-02-28 06:07] VITALS: BP 123/78
[2019-02-28 06:20] LABS: CALCIUM 8.7 mg/dL (8.5-10.1); CARBON DIOXIDE 25.1 mmol/L (21-32); CHLORIDE SERUM 105 mmol/L (98-107); CREATININE SERUM 0.8 mg/dL (0.7-1.3); GFR1 > 60 mL/min; GLUCOSE SERUM 122 mg/dL (74-106); POTASSIUM SERUM 3.8 mmol/L (3.5-5.1); SODIUM SERUM 138 mmol/L (136-145)
[2019-02-28 06:32] LABS: PLATELET COUNT 418 x10^3mcL (130-400)
--- NOTE | 2019-02-28 07:08 | NUR ---
PT QUIET AND RESTING. DRESSING ON THE LEFT FOOT C/D/I. WOUND VAC IN PLACE. DENIES PAIN THUS FAR. MADE PT COMFORTABLE. WILL ENDORSE TO THE AM NURSE ACCORDINGLY.
--- NOTE | 2019-02-28 07:30 | NUR ---
SEEN IN BED AAOX4. NO RESP DISTRESS NOTED ON ROOM AIR. STATED PAIN TO LEFT FOOT INCISION IS TOLERABLE, KEPT LLE ELEVATED ON PILLOW, NOTED AR DRSG DRY AND INTACT WITH WOUND VAC INPLACE WITH SMALL AMOUNT OF SEROUS DRAINAGE NOTED. IVF NS TO RAC INFUSING WELL AT 100ML/HR. PLAN OF CARE DISCUSSED. CALL LIGHT PLACED WITHIN EASY REACH. SIDERAILS UP X2. CONTACT ISOLATION MAINTAINED.
[2019-02-28 10:05] VITALS: BP 126/81
[2019-02-28 17:03] VITALS: BP 129/73
[2019-02-28 17:58] VITALS: BP 129/73
--- NOTE | 2019-02-28 19:38 | NUR ---
DISCHARGE INSTRUCTION EXPLAINED AND GIVEN TO PATIENT'S SON WHO IS AWAKE, ALERT, ORIENTED X4 SPEAK PERUVIAN FLUENTLY. HOME WOUND VAC CONNECTED AND INSTRUCTED HOW TO USE AT BEDSIDE, PATIENT AND HIS SON VERBALIZED UNDERSTANDING. S/L REMOVED NO ERYTHEMA OR INFILTRATION NOTED TO SITE, DRSG APPLIED. ENDORSED TO NIGHT NURSE.
--- NOTE | 2019-02-28 19:47 | NUR ---
PT DISCHARGED VIA WHEELCHAIR. DISCHARGE INSTRUCTION AND PERSCRIPTION GIVEN BY DAY SHIFT RN. IV REMOVED, CATHETER INTACT, GAUZE AND TAPE APPLIED, NO EXCESS BLEEDING NOTED. ALL BELONGINGS WITH PT SON. NO ACUTE DISTRESS UPON DISCHARE.
== END 2019-02-28 19:50 | disposition home health service (06) | DRG 305 ==
LOC: ED 18:11 → MU 22:05
PROVIDERS: Emergency Medicine; Family Medicine; General Practice; Nutritionist Nutrition, Education; ADMIT Internal Medicine
PROC: 0JBR0ZZ Excision of Left Foot Subcutaneous Tissue and Fascia, Open Approach (ICD-10-PCS; 2019-02-17)
PROC: 0Y6N0ZF Detachment at Left Foot, Partial 5th Ray, Open Approach (ICD-10-PCS; principal; 2019-02-22 09:00)
DX: E11.52 Type 2 diabetes mellitus with diabetic peripheral angiopathy with gangrene (principal); E11.621 Type 2 diabetes mellitus with foot ulcer; I96 Gangrene, not elsewhere classified; E11.65 Type 2 diabetes mellitus with hyperglycemia; E86.0 Dehydration; E87.1 Hypo-osmolality and hyponatremia; L03.116 Cellulitis of left lower limb; B96.20 Unspecified Escherichia coli [E. coli] as the cause of diseases classified elsewhere; B95.61 Methicillin susceptible Staphylococcus aureus infection as the cause of diseases classified elsewhere; L97.421 Non-pressure chronic ulcer of left heel and midfoot limited to breakdown of skin; Z68.28 Body mass index [BMI] 28.0-28.9, adult; Z79.84 Long term (current) use of oral hypoglycemic drugs; Z16.24 Resistance to multiple antibiotics
CPT/HCPCS: 82962; 83880; 84439; J0278; J0295; J0696; J1170; J1815; J2001; J2250; J2270; J2405; J2543; J2704; J3010; J3370; J3490; J7030; Q0092

== ENCOUNTER 2019-08-27 11:51 | Emergency (ER) | payer MEDICAID ==
[~2019-08-27] VITALS: Ht 172.7 cm; Wt 78.9 kg
[~2019-08-27 11:51] MED LIST: METFORMIN HCL850 MG PO
[2019-08-27 12:02] VITALS: Ht 172.7 cm; Wt 78.9 kg
[2019-08-27 13:41] VITALS: BP 133/74
== END 2019-08-27 13:41 | disposition home or self-care (01) ==
LOC: ED 11:51
DX: M54.41 Lumbago with sciatica, right side (principal); E11.9 Type 2 diabetes mellitus without complications
CPT/HCPCS: 82962; J1885

== ENCOUNTER 2019-10-08 08:59 | Emergency (ER) | payer MEDICAID ==
[~2019-10-08] VITALS: Ht 167.6 cm; Wt 82.6 kg
[2019-10-08 09:03] VITALS: Ht 167.6 cm; Wt 82.6 kg
[2019-10-08 10:24] VITALS: BP 155/70
== END 2019-10-08 10:24 | disposition home or self-care (01) ==
LOC: ED 08:59
DX: S39.012A Strain of muscle, fascia and tendon of lower back, initial encounter (principal); E11.9 Type 2 diabetes mellitus without complications; X58.XXXA Exposure to other specified factors, initial encounter; Y93.89 Activity, other specified; Y92.89 Other specified places as the place of occurrence of the external cause; Y99.8 Other external cause status
CPT/HCPCS: J1885

== ENCOUNTER 2020-01-18 12:39 | Inpatient (IN) | payer MEDICAID ==
[~2020-01-18] VITALS: Ht 167.6 cm; Wt 82.6 kg
[2020-01-18 12:46] VITALS: Ht 167.6 cm; Wt 82.6 kg
[2020-01-18 13:52] LABS: BASOPHIL % 0.2 % (0-2); PLATELET COUNT 291 x10^3mcL (130-400); RED CELL DISTRIBUTION WIDTH 13.4 % (11.5-14.5)
[2020-01-18 14:01] LABS: CALCIUM 8.6 mg/dL (8.5-10.1); CARBON DIOXIDE 27.9 mmol/L (21-32); CHLORIDE SERUM 104 mmol/L (98-107); GFR1 > 60 mL/min; GLUCOSE SERUM 315 mg/dL (74-106); POTASSIUM SERUM 4.6 mmol/L (3.5-5.1); SODIUM SERUM 139 mmol/L (136-145)
[2020-01-18 14:05] LABS: ALKALINE PHOSPHATASE 111 U/L (46-116); ALT/SGPT 22 U/L (16-63); AST/SGOT 21 U/L (15-37); BILIRUBIN TOTAL 0.8 mg/dL (0.20-1.00); C REACTIVE PROTEIN 6.3 mg/dL (<=0.9); TOTAL PROTEIN, SERUM 7.6 g/dL (6.4-8.2)
[2020-01-18 14:11] LABS: ALBUMIN 2.8 g/dL (3.4-5.0)
[2020-01-18] MEDS ORDERED: ACETAMINOPHEN500 M5 (15:51)
[2020-01-18 17:01] VITALS: BP 141/83
[2020-01-18 18:22] LABS: microscopic required? NO
[2020-01-18 18:35] LABS: urine erythrocyte NEGATIVE (NEGATIVE)
[2020-01-18 18:48] LABS: AMPHETAMINE QUAL UR NONE DETECTED (See below)
[2020-01-18 20:53] VITALS: BP 117/78
[2020-01-19 06:36] LABS: BASOPHIL % 0.3 % (0-2); PLATELET COUNT 286 x10^3mcL (130-400); RED CELL DISTRIBUTION WIDTH 13.6 % (11.5-14.5)
[2020-01-19 06:40] VITALS: BP 122/72
[2020-01-19 06:56] LABS: CALCIUM 8.7 mg/dL (8.5-10.1); CARBON DIOXIDE 26.6 mmol/L (21-32); CHLORIDE SERUM 107 mmol/L (98-107); CREATININE SERUM 0.8 mg/dL (0.7-1.3); GFR1 > 60 mL/min; GLUCOSE SERUM 112 mg/dL (74-106); MAGNESIUM 1.6 mg/dL (1.8-2.4); PHOSPHOROUS 3.9 mg/dL (2.5-4.9); POTASSIUM SERUM 4.4 mmol/L (3.5-5.1); SODIUM SERUM 141 mmol/L (136-145)
[2020-01-19 09:07] VITALS: BP 135/82
[2020-01-19] MEDS ORDERED: LANTI SQ (09:07)
[2020-01-19 17:02] VITALS: BP 141/84
[2020-01-19 22:21] VITALS: BP 122/75
[2020-01-20 06:02] VITALS: BP 130/75
[2020-01-20 06:56] LABS: BASOPHIL % 0.6 % (0-2); PLATELET COUNT 312 x10^3mcL (130-400); RED CELL DISTRIBUTION WIDTH 13.1 % (11.5-14.5)
[2020-01-20 07:21] LABS: CALCIUM 8.9 mg/dL (8.5-10.1); CARBON DIOXIDE 27.9 mmol/L (21-32); CHLORIDE SERUM 105 mmol/L (98-107); GFR1 > 60 mL/min; GLUCOSE SERUM 109 mg/dL (74-106); MAGNESIUM 1.8 mg/dL (1.8-2.4); PHOSPHOROUS 4.3 mg/dL (2.5-4.9); POTASSIUM SERUM 4.4 mmol/L (3.5-5.1); SODIUM SERUM 140 mmol/L (136-145)
[2020-01-20 08:50] VITALS: BP 135/77
[2020-01-20 12:34] VITALS: BP 125/78
[2020-01-20 16:40] VITALS: BP 119/71
[2020-01-20 20:48] VITALS: BP 141/77
[2020-01-21] VITALS (7 sets, daily range): BP systolic 126–157; BP diastolic 77–95
[2020-01-21 06:32] LABS: BASOPHIL % 0.6 % (0-2); PLATELET COUNT 332 x10^3mcL (130-400); RED CELL DISTRIBUTION WIDTH 13.4 % (11.5-14.5)
[2020-01-21 07:24] LABS: CALCIUM 8.6 mg/dL (8.5-10.1); CARBON DIOXIDE 28.1 mmol/L (21-32); CHLORIDE SERUM 104 mmol/L (98-107); GFR1 > 60 mL/min; GLUCOSE SERUM 241 mg/dL (74-106); MAGNESIUM 1.9 mg/dL (1.8-2.4); PHOSPHOROUS 3.4 mg/dL (2.5-4.9); POTASSIUM SERUM 4.2 mmol/L (3.5-5.1); SODIUM SERUM 138 mmol/L (136-145)
[2020-01-21] MEDS ORDERED: AUG500 PO (15:51)
[2020-01-21] MEDS ORDERED: MOT800 PO (15:52)
== END 2020-01-21 17:37 | disposition home or self-care (01) | DRG 314 ==
LOC: ED 12:39 → MU 14:47
PROVIDERS: Podiatrist; Specialist; ADMIT Family Medicine
PROC: 0Y6S0Z3 Detachment at Left 2nd Toe, Low, Open Approach (ICD-10-PCS; principal; 2020-01-21 14:00)
DX: M86.8X7 Other osteomyelitis, ankle and foot (principal); E11.621 Type 2 diabetes mellitus with foot ulcer; E11.42 Type 2 diabetes mellitus with diabetic polyneuropathy; E44.0 Moderate protein-calorie malnutrition; E11.40 Type 2 diabetes mellitus with diabetic neuropathy, unspecified; E83.42 Hypomagnesemia; E11.65 Type 2 diabetes mellitus with hyperglycemia; M86.9 Osteomyelitis, unspecified; D63.8 Anemia in other chronic diseases classified elsewhere; M54.30 Sciatica, unspecified side; L03.032 Cellulitis of left toe; L97.521 Non-pressure chronic ulcer of other part of left foot limited to breakdown of skin; X58.XXXA Exposure to other specified factors, initial encounter; Y93.89 Activity, other specified; Z68.29 Body mass index [BMI] 29.0-29.9, adult; Y92.89 Other specified places as the place of occurrence of the external cause; Z89.422 Acquired absence of other left toe(s); Z83.3 Family history of diabetes mellitus
CPT/HCPCS: 82962; G0378; J0295; J0696; J1815; J2250; J2543; J3010; J3370; J3490; J7030; J7040; J7060; Q0092

== ENCOUNTER 2020-09-15 10:35 | Emergency (ER) | payer MEDICAID ==
[~2020-09-15] VITALS: Ht 167.6 cm; Wt 84.1 kg
[~2020-09-15 10:35] MED LIST changes: +ACETAMINOPHEN500 M5; +AUG500 PO; +LANTI SQ; +MOT800 PO
[2020-09-15 10:42] VITALS: Ht 167.6 cm; Wt 84.1 kg
[2020-09-15 12:52] VITALS: BP 146/87
== END 2020-09-15 12:50 | disposition home or self-care (01) ==
LOC: ED 10:35
DX: L03.116 Cellulitis of left lower limb (principal); E11.9 Type 2 diabetes mellitus without complications; Z89.422 Acquired absence of other left toe(s)
CPT/HCPCS: J0696

== ENCOUNTER 2021-01-16 13:59 | Emergency (ER) | payer MEDICAID ==
[~2021-01-16] VITALS: Ht 172.7 cm; Wt 84.8 kg
[2021-01-16 14:22] VITALS: BP 156/84; Ht 172.7 cm; Wt 84.8 kg
== END 2021-01-16 16:15 | disposition left against medical advice (07) ==
LOC: ED 13:59
DX: Z53.21 Procedure and treatment not carried out due to patient leaving prior to being seen by health care provider (principal)